=== PATIENT | female | born 1970 | race Caucasian/White ===

== ENCOUNTER → 2016-11-27 | Outpatient (CLI) | payer BC ==
[2016-11-27 18:36] LABS: ESTIMATED AVERAGE GLUCOSE 105 mg/dl; HA1C FLAG Normal (Normal)
[2016-11-29 12:42] LABS: THYROGLOBULIN <0.1 NG/ML (2.8-40.9)
== END | disposition home or self-care (01) ==
LOC: C.LAB1850 16:37
PROVIDERS: ATTEND Internal Medicine Endocrinology, Diabetes & Metabolism
DX: E06.3 Autoimmune thyroiditis (principal); M79.1 Myalgia; E66.9 Obesity, unspecified; C73 Malignant neoplasm of thyroid gland

== ENCOUNTER → 2017-09-02 | Outpatient (CLI) | payer BC ==
[2017-09-02 17:52] LABS: BASO % 0.5 %; BASO ABS # 0.03 K/uL (0-0.2); EOS % 3.3 %; EOS ABS # 0.21 K/uL (0-0.5); HEMATOCRIT 38.6 % (37-47); HEMOGLOBIN 13.2 g/dL (12.0-16.0); IG# 0.02 K/uL (0.00-0.02); LYMPH % 37.3 %; LYMPH ABS # 2.37 K/uL (1.2-3.4); MEAN CELL VOLUME 91.9 fL (80-100); MEAN CORPUSCULAR HEMOGLOBIN 31.4 pg (25-34); MEAN CORPUSCULAR HGB CONC 34.2 g/dl (32-36); MEAN PLATELET VOLUME 8.7 fL (7.4-10.4); MONO % 7.7 %; MONO ABS # 0.49 K/uL (0.11-0.59); NEUT % 50.9 %; NEUT ABS # 3.23 K/uL (1.4-6.5); PLATELET COUNT 347 K/uL (130-400); RED CELL DISTRIBUTION WIDTH CV 13.5 % (11.5-14.5); RED CELL DISTRIBUTION WIDTH SD 45.4 fL (36.4-46.3); WHITE BLOOD COUNT 6.35 K/uL (4.8-10.8)
[2017-09-02 17:56] LABS: ALBUMIN 3.5 gm/dl (3.4-5.0); ALT/SGPT 24 U/L (12-78); AST/SGOT 17 U/L (15-37); BLOOD UREA NITROGEN 11 mg/dl (7-18); CALCIUM 8.3 mg/dl (8.5-10.1); CARBON DIOXIDE 26 mmol/L (21-32); CREATININE 0.74 mg/dl (0.60-1.20); GLUCOSE 84 mg/dl (70-99); POTASSIUM 4.1 mmol/L (3.5-5.1); SODIUM 138 mmol/L (136-145)
[2017-09-02 18:07] LABS: ALKALINE PHOSPHATASE 57 U/L (45-117); TOTAL PROTEIN 6.8 gm/dl (6.4-8.2)
== END | disposition home or self-care (01) ==
LOC: C.LABMFLN 15:54
PROVIDERS: ATTEND Family Medicine
DX: E89.0 Postprocedural hypothyroidism (principal); E53.8 Deficiency of other specified B group vitamins; E55.9 Vitamin D deficiency, unspecified; M79.1 Myalgia

== ENCOUNTER 2019-12-18 08:08 | Observation (INO) ==
--- NOTE | 2019-12-15 11:35 | Anesthesiology Consultation ---
Date of Service December 15, 2019 Assessment & Plan (1) Encounter for pre-operative examination: Chart Review Chart Review: Acceptable Risk for Surgery (pending DOS and preop Covid testing results ) and Patient NOT seen in Pre Admission Testing -Per surgeon's office- preop labs to be done DOS- will order CBC with diff, PRP and PT/INR/PTT. Also check preg test stat AM of surgery. Egg allergy per allergy testing- patient still eats PO eggs- causes cough -Pt seen in PAT 07/09/19 prior to surgery getting postponed- at that time patient denied any personal issues with anesthesia. Pt's father had one episode of SOB post op but no other issues. Per nursing assessment 12/09/19, no recent travel. No known Covid positive contacts or Covid related symptoms. Scheduled for Covid testing 12/14/19= results pending. Last seen by PCP 08/05/19= pt did discuss at that time that her ankle surgery was postponed due to Covid. Routine labs ordered. Continue current medications. Hypothyroidism, asthma, GERD all seem stable. Encouraged healthy diet and exercis to promote weight loss to improve BMI. Seen by EP 09/01/18= Referred to EP due to positive KCNQ1. Possible risk for long QT. Prolonged QT on 12/2014 EKG. Cardio reviewed EKG from that day with patient - no significant issues. Reviewed ECHO. Avoid agents that prolong QTc and to check with cardio office or pharmacists before taking any new meds. "No further cardiac testing necessary at this juncture". No nadolol at this time as it would likely make patient hypotensive and bradycardic. Recommended her children and siblings get gene tested. F/u in one year History Surgery Operation Date: 12/18/19 10:05 Proposed Procedures p Left Ankle Reconstruction Posterior Tibial Tendon with Excision Accessory Navicular and Flexor Digitorium Longus, - Rodolfo Galicia DO s Medializing Calcaneal Osteotomy, Lateral Column [place] with Autograft, Autograft [place] Left Iliac Crest - Rodolfo Galicia DO Height/Weight Height: 5 ft 8.5 in Weight: 122.47 kg Allergies Allergy/AdvReac Type Severity Reaction Status Date / Time venom-honey bee Allergy Severe SWELLING Verified 12/09/19 10:43 ARM cephalexin [From Keflex] Allergy Unknown Hives Verified 12/09/19 10:43 egg Allergy Unknown COUGH-EATS Verified 12/09/19 10:43 ANYWAY erythromycin base Allergy Unknown Hives Verified 12/09/19 10:43 Penicillins Allergy Unknown Hives Verified 12/09/19 10:43 Sulfa (Sulfonamide Allergy Unknown Hives Verified 12/09/19 10:43 Antibiotics) CHICLE Allergy Severe Anaphylaxis Uncoded 12/09/19 10:43 Medications Home Medications Medication Instructions Recorded Confirmed Last Taken cholecalciferol (vitamin D3) 50 5,000 units PO QAM #30 tab 01/13/19 12/09/19 Unknown mcg (2,000 unit) tablet cyanocobalamin (vitamin B-12) 10,000 mcg PO QAM tab 01/13/19 12/09/19 Unknown 1,000 mcg tablet epinephrine 0.3 mg/0.3 mL 0.3 ml IM ONCE PRN ea 01/13/19 12/09/19 Unknown injection, auto-injector levothyroxine 175 mcg tablet 175 mcg PO QAM tab 01/13/19 12/09/19 Unknown norethindrone acetate 5 mg tablet 5 mg PO Q OTHER DAY tab 01/13/19 12/09/19 Unknown albuterol sulfate 2 puff INHALATION QID PRN 07/03/19 12/09/19 Unknown aspirin [Aspir-81] 81 mg PO QAM 07/03/19 12/09/19 Unknown diclofenac sodium 50 mg PO BID PRN 07/03/19 12/09/19 Unknown ibuprofen 600 mg PO Q6H PRN 07/03/19 12/09/19 Unknown multivitamin 1 tab PO HS 07/03/19 12/09/19 Unknown Past Medical History Medical History Asthma WELL CONTROLLED AND STABLE- RARELY USES INHALER GERD (gastroesophageal reflux disease) WELL CONTROLLED AND STABLE H/O Prinzmetal angina Occurred in 2011- had catherization - no issues Hypothyroidism Secondary to thyroidectomy Long Q-T syndrome FOUND TO HAVE GENETIC PREDISPOSITION TO PROLONGED QT SYNDROME- F/U'S INDUSTRIAL SAFETY AND HEALTH SPECIALIST RAZIA ARRINGTON-DX'D 2019-NO MEDS Osteoarthritis Thyroid cancer s/p thyroidectomy and iodine ablation. No chemo or XRT Past Family History Family History Father Family history of reaction to anesthesia SLOW TO WAKE UP/BREATH POST OP Family hx of colon cancer Grandmother (Maternal) Family history of diabetes mellitus Past Surgical History Surgical History History of cardiac cath 2012 [place] NO INTERVENTION NEEDED- PER 09/01/18 CARDIO NOTE- NORMAL CORONARY ARTERIES- UNABLE TO OBTAIN CATH REPORT History of section X 2 History of cholecystectomy History of colonoscopy X 2 History of endometrial ablation History of esophagogastroduodenoscopy (EGD) History of hand surgery TENDON REPAIR History of thyroidectomy 2013 FOR CANCER PLUS NUCLEAR ABLATION Social History Smoking Status: Never smoker Do You Dip or Chew Tobacco: No Hx Alcohol Use: Yes Alcohol type: wine alcohol intake frequency: a few times a month Hx Substance Use: No Testing Electrocardiogram Date: 07/09/19 Findings: + NSR @ (75) Chest X-Ray Date: 07/09/19 Findings: + NAD Echocardiogram Date: 05/29/18 EF: 50-55% LV Function: normal RWMA: + hypokinetic (see below ) HK to basal inferoseptal, mid inferoseptal and apical septal. Mild to moderate MR. Mild TR. No significant change from 2012 study
--- NOTE | 2019-12-17 16:27 | History & Physical Report ---
Date of Service December 17, 2019 Assessment & Plan (1) Posterior tibial tendon dysfunction (PTTD) of left lower extremity: Schedule a Left Ankle posterior tibial tendon Reconstruction with flexor digitorum longus transfer, Excision Accessory Navicular, Medializing Calcaneal Osteotomy, Lateral Column Lengthening with Autograft, Autograft [place] Left Iliac Crest, possible percutaneous tendoachilles lengthening. All potential risks, benefits, complications, alternatives, and rehab have been discussed with the patient and she wishes to proceed. She will be scheduled for 12.18.2019 with plan for ASA 81 mg BID x 4 wks for DVT prophylaxis. (2) Pes planus of left foot: (3) Nontraumatic tear of left tibialis posterior tendon: (4) Accessory navicular bone of left foot: (5) Achilles tendon contracture, left: History of Present Illness Chief Complaint: left ankle pain and deformity Primary Care Provider: Chitra Chance PA-C This is a patient with worsening medial and lateral hindfoot pain that has been treated conservatively. She failed conservative management and her flat foot deformity was worsening. She had an MRI that noted a posterior tibial tendon tear and dysfunction. She is now being set up for surgical management. Allergies Allergy/AdvReac Type Severity Reaction Status Date / Time venom-honey bee Allergy Severe SWELLING Verified 12/09/19 10:43 ARM cephalexin [From Keflex] Allergy Unknown Hives Verified 12/09/19 10:43 egg Allergy Unknown COUGH-EATS Verified 12/09/19 10:43 ANYWAY erythromycin base Allergy Unknown Hives Verified 12/09/19 10:43 Penicillins Allergy Unknown Hives Verified 12/09/19 10:43 Sulfa (Sulfonamide Allergy Unknown Hives Verified 12/09/19 10:43 Antibiotics) CHICLE Allergy Severe Anaphylaxis Uncoded 12/09/19 10:43 Home Medications Home Medications Medication Instructions Recorded Confirmed Type cholecalciferol (vitamin D3) 50 5,000 units PO QAM #30 tab 01/13/19 12/09/19 History mcg (2,000 unit) tablet cyanocobalamin (vitamin B-12) 10,000 mcg PO QAM tab 01/13/19 12/09/19 History 1,000 mcg tablet epinephrine 0.3 mg/0.3 mL 0.3 ml IM ONCE PRN ea 01/13/19 12/09/19 History injection, auto-injector levothyroxine 175 mcg tablet 175 mcg PO QAM tab 01/13/19 12/09/19 History norethindrone acetate 5 mg tablet 5 mg PO Q OTHER DAY tab 01/13/19 12/09/19 History albuterol sulfate 2 puff INHALATION QID PRN 07/03/19 12/09/19 History aspirin [Aspir-81] 81 mg PO QAM 07/03/19 12/09/19 History diclofenac sodium 50 mg PO BID PRN 07/03/19 12/09/19 History ibuprofen 600 mg PO Q6H PRN 07/03/19 12/09/19 History multivitamin 1 tab PO HS 07/03/19 12/09/19 History Past Med/Surg History Medical History Asthma WELL CONTROLLED AND STABLE- RARELY USES INHALER GERD (gastroesophageal reflux disease) WELL CONTROLLED AND STABLE H/O Prinzmetal angina Occurred in 2011- had catherization - no issues Hypothyroidism Secondary to thyroidectomy Long Q-T syndrome FOUND TO HAVE GENETIC PREDISPOSITION TO PROLONGED QT SYNDROME- F/U'S CURRICULUM ASSISTANT RAZIA ARRINGTON-DX'D 2019-NO MEDS Osteoarthritis Thyroid cancer s/p thyroidectomy and iodine ablation. No chemo or XRT Surgical History History of cardiac cath 2012 [facility] [place] NO INTERVENTION NEEDED- PER 09/01/18 CARDIO NOTE- NORMAL CORONARY ARTERIES- UNABLE TO OBTAIN CATH REPORT History of section X 2 History of cholecystectomy History of colonoscopy X 2 History of endometrial ablation History of esophagogastroduodenoscopy (EGD) History of hand surgery TENDON REPAIR History of thyroidectomy 2012 FOR CANCER PLUS NUCLEAR ABLATION Family History Father Family history of reaction to anesthesia SLOW TO WAKE UP/BREATH POST OP Family hx of colon cancer Grandmother (Maternal) Family history of diabetes mellitus Social History Smoking Status: Never smoker Second Hand Exposure: No; Hx Alcohol Use: Yes Alcohol type: wine Hx Substance Use: No Preferred Language: P[place] Communication Ability: Effective Electronic News Gathering Editor Required: No Beliefs That Will Affect Care: None Current Living Situation: Spouse Feels Safe at Home: Yes Physical Exam Constitutional: well developed and well nourished; no acute distress ENMT: external ear and nose normal, oropharynx normal Neck: trachea midline, no thyromegaly Respiratory: normal respiratory effort, lungs clear to auscultation Cardiovascular: Rate/Rhythm: regular rate and regular rhythm Gastrointestinal (Abdomen): normal bowel sounds, soft, nontender, no hepatosplenomegaly Musculoskeletal: Ankle: + deformity (left pes planovalgus deformity), + limited ROM of ankle (left dorsiflexion and inversion decreased) and + joint line tenderness (ankle) (left PTT and sinus tarsi); no skin erythema and no ecchymosis Skin: no rashes, warm and dry Neurologic: normal touch/pain/proprioception Psychiatric: A+Ox3, euthymic affect Speech: normal rate/rhythm/volume of speech Lymphatic: no cervical or axillary lymphadenopathy
[~2019-12-18 08:08] MED LIST: LR 15ML/HR IV SCH; ROPIVACAINE 0.5% 5 MG/ML 30 ML VIAL ONE
[2019-12-18 09:14] LABS: Basophils # (auto) 0.03 K/uL (0-0.2); Basophils % (auto) 0.5 %; Eosinophils % (auto) 3.2 %; Hematocrit (blood only) 40.6 % (37-47); Hemoglobin 13.7 g/dL (12.0-16.0); Immature Granulocytes # (auto) 0.02 K/uL (0.00-0.02); Immature Granulocytes % (auto) 0.3 %; Lymphocytes % (auto) 41.3 %; Mean Corpuscular Hemoglobin 31.6 pg (25-34); Mean Corpuscular Volume 93.5 fL (80-100); Mean Platelet Volume 8.8 fL (7.4-10.4); Monocytes # (auto) 0.41 K/uL (0.11-0.59); Monocytes % (auto) 6.5 %; Neutrophils # (auto) 3.03 K/uL (1.4-6.5); Neutrophils % (auto) 48.2 %; Platelet Count 299 K/uL (130-400); RDW Coefficient of Variation 13.8 % (11.5-14.5); RDW Standard Deviation 47.4 fL (36.4-46.3); Red Blood Count 4.34 M/uL (4.2-5.4); White Blood Count 6.29 K/uL (4.8-10.8)
[2019-12-18 09:26] LABS: Mean Corpuscular Hgb Conc 33.7 g/dL (32-36)
[2019-12-18 09:30] LABS: BUN Creatinine Ratio 18.9 (10-20); Calcium 8.7 mg/dl (8.5-10.1); Creatinine Clr Calc Pharmacy 109.8 ml/min; Est GFR (Non-African American) 77.7; Potassium 3.8 mmol/L (3.5-5.1)
[2019-12-18] MEDS ORDERED: MIDAZOLAM HCL 1 MG/ML 2ML VIAL ONE (09:32)
[2019-12-18] MEDS ORDERED: PROPOFOL IV EMULSION 10 MG/ML 20 ML VIAL IV ONE (09:32)
[2019-12-18] MEDS ORDERED: fentaNYL citrate 100 MCG/2 ML VIAL ONE ×4 (09:32→14:29)
[2019-12-18] MEDS ORDERED: ROCURONIUM BROMIDE 10 MG/ML 5 ML VIAL IV ONE ×5 (09:33→13:31)
[2019-12-18] MEDS ORDERED: LIDOCAINE HCL 2% 2 ML VIAL/AMP(20MG/ML) INFIL ONE (09:40)
[2019-12-18] MEDS ORDERED: ePHEDrine sulfate 50 MG/ML AMP IV PRN (10:02)
[2019-12-18] MEDS ORDERED: fentaNYL citrate 100 MCG/2 ML VIAL IV PRN (10:02)
[2019-12-18] MEDS ORDERED: ATROPINE SULFATE 0.1 MG/ML 10ML SYR IV PRN (10:02)
[2019-12-18 10:39] LABS: Partial Thromboplastin Ratio 0.9; Partial Thromboplastin Time 25.7 Seconds (21.0-31.0); Prothrombin Time 10.3 Seconds (9.0-12.0)
--- NOTE | 2019-12-18 10:48 | History & Physical Bridge Note ---
Date of Service December 18, 2019 History & Physical Bridge Note I have examined the patient, reviewed the History & Physical and in the interval since the performance of the History & Physical I have noted the following changes of clinical significance: no changes noted
[2019-12-18] MEDS ORDERED: CEFAZOLIN 3000MG 72.5 ML IV ONE (10:53)
[2019-12-18] MEDS ORDERED: CEFAZOLIN 3000MG/72.5 ML BAG IV ONE (10:55)
[2019-12-18] MEDS ORDERED: BACITRACIN INJ 50,000 UNIT VIAL ONE (11:00)
[2019-12-18] MEDS ORDERED: LIDOCAINE HCL 1% 20 ML VIAL ONE (11:00)
[2019-12-18] MEDS ORDERED: BUPIVACAINE/EPINEPHRINE 0.25% 1:200,000 30 ML VIAL ONE (11:00)
[2019-12-18] MEDS ORDERED: THROMBIN FOR SOLN 20000 UNIT KIT ONE (11:03)
[2019-12-18] MEDS ORDERED: GELATIN SPONGE SZ 100 ONE (11:03)
[2019-12-18] MEDS ORDERED: MoRPHine SULFATE PF 1 MG/ML 10 ML AMP/VIAL ONE (11:52)
[2019-12-18] MEDS ORDERED: GLYCOPYRROLATE 0.2 MG/ML VIAL ONE (13:31)
[2019-12-18] MEDS ORDERED: NEOSTIGMINE METHYLSULFATE 5 MG/5 ML SYR ONE (13:31)
--- NOTE | 2019-12-18 13:49 | Fluoroscopy Report ---
FL ankle LT 2V HISTORY: 49 years-old Female LT ANKLE RECONSTRUCTION COMPARISON: None TECHNIQUE: 2 spot fluoroscopic images of the left ankle were obtained utilizing 14.5 seconds fluorosc opy time FINDINGS: There are apparent osteotomy changes present within the calcaneus with 2 cannulated screws. Hardware appears intact. Subtalar osteoarthritis. Expected postsurgical soft tissue swelling and deep tissue a ir. There are 2 posterior skin carly noted. IMPRESSION: Fluoroscopic assistance as above. Please see operative report for further details. ACT 112: Negative or not required by law. The above report was generated using voice recognition software. It may contain grammatical, syntax o r spelling errors. Electronically signed by: Stone Cano M.D. 12/18/2019 1:47 PM
--- NOTE | 2019-12-18 14:29 | Post Operative Brief Note ---
Immediate Post Op Note v1 Date of Surgery December 18, 2019 Pre & Post Diagnosis Operation Date: 12/18/19 10:05 Pre-Op Diagnosis: (1) Posterior tibial tendon dysfunction (PTTD) grade 2 of left lower extremity: (2) painful pes planus of left foot: (3) Nontraumatic tear of left tibialis posterior tendon: (4) Accessory navicular bone of left foot: (5) Achilles tendon contracture, left: Post-Op Diagnosis: (1) Posterior tibial tendon dysfunction (PTTD) grade 2 of left lower extremity: (2) painful pes planus of left foot: (3) Nontraumatic tear of left tibialis posterior tendon: (4) Accessory navicular bone of left foot: (5) Achilles tendon contracture, left: I identified the patient and participated in the time-out.: Yes Procedure Operation Date: 12/18/19 10:05 Actual Procedures p Left posterior tibial tendon Reconstruction with flexor digitorum longus tendon transfer, percutaneous Achilles Tendon Lengthening, Excision Accessory Navicular bone- Rodolfo Galicia DO s Medializing Calcaneal Osteotomy with screw fixation, Lateral Column Lengthening with Autograft, Autograft [place] Left Iliac Crest - Rodolfo Galicia DO Surgeon Rodolfo Galicia DO Pattern Stamper Eric Harrison PA-C Estimated Blood Loss 5 Findings Consistent with Post-Op Diagnosis Specimens None Drains Hemovac Drain Anesthesia Type General Regional Complications none Disposition Accompanied Patient To Recovery: No Disposition: Recovery Room
--- NOTE | 2019-12-18 15:19 | Anesthesiology Progress Note ---
Date of Service December 18, 2019 Anesthesia Post Procedure Vital Signs Vital Signs: Temp Pulse Pulse Resp BP Pulse Ox 12/18/19 15:10 85 14 133/85 99 12/18/19 15:00 77 14 131/82 100 12/18/19 14:50 81 14 129/81 100 12/18/19 14:41 37.0 C 85 14 138/76 98 12/18/19 09:30 69 18 147/89 H 98 12/18/19 09:07 37.1 C 88 18 128/96 100 Transfer of Care Handoff Completed per policy Notes Mental Status: alert / awake / arousable and participated in evaluation Patient Amnestic to Procedure: Yes Nausea / Vomiting: adequately controlled Pain: adequately controlled Airway Patency, RR, SpO2: stable & adequate BP & HR: stable & adequate Hydration State: stable & adequate Anesthetic Complications: no major complications apparent and Pt Satisfied with anesthetic care Notes: block is functioning well
--- NOTE | 2019-12-18 16:12 | Operative Report (OR) ---
DATE OF OPERATION: 12/18/2019 PREOPERATIVE DIAGNOSES: 1. Left foot posterior tibial tendon dysfunction grade 2. 2. Posterior tibial tendon tear. 3. Achilles contracture. 4. Painful accessory navicular. 5. Painful pes planovalgus deformity. POSTOPERATIVE DIAGNOSES: 1. Left foot posterior tibial tendon dysfunction grade 2. 2. Posterior tibial tendon tear. 3. Achilles contracture. 4. Painful accessory navicular. 5. Painful pes planovalgus deformity. PROCEDURES PERFORMED: 1. Left foot posterior tibial tendon reconstruction with flexor digitorum longus tendon transfer. 2. Medialized and calcaneal osteotomy with screw fixation. 3. Lateral column lengthening procedure with autograft. 4. Percutaneous tendon Achilles lengthening. 5. Resection of painful accessory navicular. 6. Autograft harvest from the left iliac crest. SURGEON: Rodolfo Galicia DO. SHIPPING SERVICES SALES REPRESENTATIVE: Eric Harrison PA-C who was present for patient positioning, sterile prep and drape, management of retractors and instruments. He was present through the critical portions of the case including wound closure, application of sterile dressing and transport of the patient to recovery. ANESTHESIA: General, regional. SPECIMENS: None. DRAINS: Hemovac x1. COMPLICATIONS: None. BLOOD LOSS: 20 mL. PERTINENT HISTORY: This is a 49-year-old female who has had progressive chronic and worsening left foot and hindfoot pain over the last 6 months. She has noted flattening of her medial arch with increasing lateral-sided sinus tarsi pain and increasing contracture of her Achilles tendon. She attempted and failed conservative management including use of anti-inflammatories, use of a brace, modification of shoe wear, modification of activities, rest, observation, physician-directed home exercises and physical therapy. Radiographs and MRI demonstrate damage to the posterior tibial tendon with significant hindfoot valgus and accessory navicular. The patient was then scheduled for surgery as indicated. All potential risks, benefits, complications, alternatives, rehab potential for incomplete relief of symptoms, need for further surgery, DVT, PE, , persistent pain, swelling, scarring, weakness, neurovascular injury, wound complications, hardware failure, nonunion, malunion, and bone fracture were discussed with the patient. The patient decided to proceed with the procedure as indicated. DESCRIPTION OF PROCEDURE: The patient was taken to the operative suite. The consent was reviewed and surgical site was identified. The patient had undergone a general, regional anesthetic and then transferred to the Operating Room table. Tourniquet was placed high in the left thigh over cast padding. Left iliac crest and left lower extremity were then sterilely prepped and draped in usual fashion. The left lower extremity was then elevated and exsanguinated with Esmarch bandage, tourniquet inflated to 350 mmHg. Next, left foot was held in dorsiflexion. 11 blade scalpel was used to perform a three part percutaneous tendo Achilles lengthening and then the small stab incisions were then closed with a skin stapler. Next, a 15 blade scalpel was used to make an incision in oblique fashion on the lateral aspect of the left calcaneus. The incision was deepened to subcutaneous tissue. Meticulous hemostasis with electrocautery. Full thickness flaps were developed. Next, periosteum was elevated with small periosteal elevator. Hohmann retractors were placed and a sagittal saw was used to perform the osteotomy in the posterior aspect of the calcaneus. Tuberosity was then shifted medially and then stabilized with a guide pin from the 7.3 mm cannulated screw set under fluoroscopic control. Next, a short thread 7.3 mm cannulated screw of appropriate length was then placed over the guide pin and then used to compress the osteotomy under fluoroscopic control. Next, the guide pin was removed. The wound was irrigated with sterile normal saline and the dermis was closed using buried 3-0 Vicryl sutures and the skin was closed using 4-0 Nylon. Next, a 15 blade scalpel incision was made over the anterior process of the calcaneus and lateral calcaneus, the incision deepened through subcutaneous tissue, meticulous hemostasis with electrocautery. The extensor digitorum brevis was identified, incised and then elevated both superiorly and inferiorly. Peroneal tendon sheath was elevated and Hohmann retractors were placed in the sinus tarsi and then the inferior aspect of the calcaneus. A sagittal saw was used to make an osteotomy approximately 1.5 cm proximal to the calcaneal cuboid joint. Smooth osteotomes were placed into the osteotomies to open the osteotomy site and then a cervical lamina weave defect charting clerk was placed in the opening. The opening of appropriate width was then measured and the cervical lamina weave defect charting clerk was then removed from the osteotomy and a moist lap was placed over the foot. Next, after injection of the left iliac crest with approximately 15 cc of 0.5% Marcaine with Epinephrine a 15 blade scalpel incision was made over the iliac crest approximately 1 cm proximal to the ASIS. This was deepened to subcutaneous tissue with electrocautery down to the level of the fascia. Fascia was incised in line with the skin incision and then the iliac crest was clearly visualized, soft tissue and fascia was elevated medially and laterally. Small Santos retractors were placed in the inner and outer table of the iliac crest. It was irrigated with sterile Normal Saline. Appropriate length of bone wedge was measured and marked with electrocautery and then a sagittal saw was used to resect the appropriate width trapezoidal tricortical graft from the pelvis. Next, after irrigation and suction the graft was then placed on the back table and a small amount of cancellous graft was excised from the iliac crest. The wound was then finally irrigated with Sterile Normal Saline. The defect in the iliac crest was then packed with Gelfoam and Thrombin. This was then closed with the fascia overlying the iliac crest with #1 Vicryl sutures. Next, this was injected with 1 cc of Duramorph and 5 cc of 0.5% Marcaine with Epinephrine. The dermis was closed using buried interrupted 2-0 Vicryl sutures and the skin was closed using skin carly. Approximately 5 more cc of 0.5% Marcaine with Epinephrine was injected. No oozing or bleeding was encountered and a sterile compressive dry dressing was applied overwrapped with an OpSite. Next, the graft was then placed in the lateral osteotomy of the foot to lengthen the lateral column using a cervical lamina weave defect charting clerk to span the osteotomy. After the graft was tamped in place with a bone tamp and mallet the cervical lamina weave defect charting clerk was removed. Next, the adjacent bone graft obtained from the iliac crest was then packed around the tricortical graft and then the graft was then stabilized with a single fully threaded 4.0 mm small fragment screw placed under lag technique compressing the graft in place. Next, the 2-0 Vicryl suture was used to close the extensor digitorum brevis and the dermis was closed using buried interrupted 3-0 Vicryl. Skin was closed using 4-0 Nylon sutures. Next, a 15 blade scalpel was used to make a long curvilinear incision along the medial aspect of the hind foot overlying the posterior tibial tendon. The incision was deepened to subcutaneous tissue. Meticulous hemostasis achieved with electrocautery. The incision was extended to the first metatarsal head. Next, after incision of the lacinate ligament the flexor retinaculum was encountered. This was incised in line with skin incision overlying the posterior tibial tendon. The posterior tibial tendon was clearly visualized. Tenotomy scissors were then used to complete the release of the flexor retinaculum and the posterior tibial tendon was then elevated sharply with combination of electrocautery and 15 blade scalpel from its insertion on the navicular. The damaged portion of the tendon distally was then resected and then a whip stitch was placed with #2 FiberWire suture in the distal aspect of the posterior tibial tendon. Next, dissection was continued in the mid foot in the interval between the first metatarsal and the abductor hallucis. A Agustín retractor was placed in the wound and then after careful dissection the master knot of Yusef was released and the flexor digitorum longus and flexor hallucis longus were clearly visualized distally. Tenodesis was performed with interrupted #2 FiberWire suture with toes held in neutral alignment in line with the metatarsals. Next, a whip stitch was placed in the distal aspect of the FDL tendon and then the FDL was then released distally to allow it to be retracted proximally posterior to the medial malleolus after a small cut was made in the FDL sheath posterior to the medial malleolus. After the tendon was withdrawn posteriorly, the soft tissues were elevated from the medial navicular and a 4.5 mm drill hole was made in the medial navicular. A Melendez suture passer was used to transfer the tendon from the plantar to the dorsal aspect of the navicular. It was then sutured back down to itself using a sharp tendon passer and a Pulvertaft weave technique with #2 fiber wire suture. Several passes were made and then this was then incorporated into the posterior tibial tendon. Next, free needle was used to tie the ends of the posterior tibial tendon and FDL tendon into the adjacent tendons. Sutures were then tied and cut. The wound was irrigated with Sterile Normal Saline. Deep drain was placed, a #10 [place] single Hemovac drain medially and then the flexor sheath was closed using interrupted 2-0 Vicryl sutures. The interval between the first metatarsal and the abductors were closed using interrupted 2-0 Vicryl sutures. The dermis was closed using buried interrupted 3-0 Vicryl suture and skin closed with 4-0 Nylon. A sterile compressive Filemon Huffman plaster splint was applied and wrapped with an Tyler wrap with the foot held in slight equinus and inversion. The tourniquet was released, patient awakened and taken to recovery in stable condition. I attest to the content of the Intraoperative Record and any orders documented therein. Any exceptions are noted below. SANCHEZ
[2019-12-18] MEDS ORDERED: MAGNESIUM HYDROXIDE SUSP 30 ML UDC PO PRN (16:44)
[2019-12-18] MEDS ORDERED: ONDANSETRON INJ 2 MG/ML 2 ML VIAL IV PRN (16:44)
[2019-12-18] MEDS ORDERED: ALBUTEROL HFA 8 GM INHALER INH PRN (16:44)
[2019-12-18] MEDS ORDERED: bisacodyL 10 MG SUPP PR PRN (16:44)
[2019-12-18] MEDS ORDERED: NALOXONE HCL 0.4 MG/1 ML VIAL/CARP IV PRN (16:44)
[2019-12-18] MEDS ORDERED: OXYCODONE HCL IR 5 MG TAB (IMMEDIATE RELEASE) ONE (17:01)
[2019-12-18] MEDS ORDERED: SODIUM CHLORIDE 0.9% 1000ML 1,000 ML IV SCH (17:30)
[2019-12-18] MEDS: CEFAZOLIN 2000MG 2,000 MG/15 ML SYR IV SCH (18:47)
[2019-12-18] MEDS: ASPIRIN 81 MG ECTAB PO SCH (21:53)
[2019-12-18] MEDS: ACETAMINOPHEN 500 MG TAB PO SCH (21:53)
[2019-12-18] MEDS: DOCUSATE SODIUM 100 MG CAP PO SCH (21:54)
[2019-12-18] MEDS: OXYCODONE HCL IR 5 MG TAB (IMMEDIATE RELEASE) PO PRN (21:58)
[2019-12-19] MEDS: CEFAZOLIN 2000MG 2,000 MG/15 ML SYR IV SCH (03:19)
[2019-12-19] MEDS: OXYCODONE HCL IR 5 MG TAB (IMMEDIATE RELEASE) PO PRN ×6 (03:19→21:56)
[2019-12-19] MEDS: HYDROmorphone INJ 0.5 MG/0.5 ML SYR IV PRN ×4 (05:00→19:36)
[2019-12-19] MEDS ORDERED: HYDROmorphone INJ 1 MG/ML SYRINGE IV STA (05:48)
[2019-12-19] MEDS: ACETAMINOPHEN 500 MG TAB PO SCH ×3 (05:53→21:57)
[2019-12-19] MEDS: LEVOTHYROXINE SODIUM 175 MCG TABLET PO SCH (05:54)
[2019-12-19] MEDS: ASPIRIN 81 MG ECTAB PO SCH ×2 (08:18→19:40)
[2019-12-19] MEDS: MULTIVITAMIN TAB PO SCH (08:18)
[2019-12-19] MEDS: DOCUSATE SODIUM 100 MG CAP PO SCH ×2 (08:18→19:40)
--- NOTE | 2019-12-19 10:35 | Orthopedic Progress Note ---
Date of Service December 19, 2019 Assessment & Plan (1) Achilles tendon contracture, left: POD #1, Left posterior tib tendon reconstruction, Achilles lengthening, excision accessory navicular bone, calcaneal osteotomy with iliac crest bone autograft. Pain control PT/OT NWB w walker D/C plans- home w stable. DVT proph- ASA. (2) Posterior tibial tendon dysfunction (PTTD) of left lower extremity: Admission and Anticipated Discharge Date Admission Date: December 18, 2019 Subjective POD #1, Pain is main issues this AM. Denies SOB, Cp, N/V, dizziness. Used walker to go to and from restroom, but states she was unsteady. Physical Exam Physical Exam: Left foot/ ankle dressings/ splint c/d/i. Toes mobile. Decreased sensation at toes. Good capillary refill. Left hip dressing c/d/i. Results & Data ([facility]) Vital Signs (Past 12 Hours) Vital Signs Temp Pulse Resp BP Pulse Ox 12/19/19 06:49 37.0 C 92 H 16 109/69 94 12/19/19 03:00 36.9 C 85 16 110/70 96 12/18/19 23:05 37.1 C 62 16 123/78 98
[2019-12-19 11:48] LABS: Appearance Urine Cloudy (Clear); Bacteria Urine Automated Negative (Negative); Bilirubin Urine Negative (Negative); Blood Urine 2+ (Negative); Color Urine Dark Yellow; Epithelial Cell Urine Auto >30 /lpf (0-5); Glucose Urine UA Negative (Negative); Ketones Urine Trace (Negative); Leukocyte Esterase Urine Negative (Negative); Nitrite Urine Negative (Negative); Protein Urine Negative (Negative); Specific Gravity Urine 1.031 (1.000-1.030); Urobilinogen Urine Negative (Negative)
[2019-12-19] MEDS: OXYCODONE HCL 10 MG TABCR (OXYCONTIN) PO SCH (20:14)
[2019-12-20] MEDS: HYDROmorphone INJ 1 MG/ML SYRINGE IV PRN ×3 (00:21→20:02)
[2019-12-20] MEDS: OXYCODONE HCL IR 5 MG TAB (IMMEDIATE RELEASE) PO PRN ×4 (03:15→17:40)
[2019-12-20] MEDS: ACETAMINOPHEN 500 MG TAB PO SCH ×3 (06:59→21:59)
[2019-12-20] MEDS: LEVOTHYROXINE SODIUM 175 MCG TABLET PO SCH (06:59)
[2019-12-20] MEDS: OXYCODONE HCL 10 MG TABCR (OXYCONTIN) PO SCH ×2 (08:13→20:03)
[2019-12-20] MEDS: DOCUSATE SODIUM 100 MG CAP PO SCH ×2 (08:14→20:03)
[2019-12-20] MEDS: MULTIVITAMIN TAB PO SCH (08:14)
[2019-12-20] MEDS: ASPIRIN 81 MG ECTAB PO SCH ×2 (08:14→20:03)
--- NOTE | 2019-12-20 08:30 | Orthopedic Progress Note ---
Date of Service December 20, 2019 Assessment & Plan (1) Achilles tendon contracture, left: POD #2, Left posterior tib tendon reconstruction, Achilles lengthening, excision accessory navicular bone, calcaneal osteotomy with iliac crest bone autograft. Pain control, Oxycontin added q12h w Brianna for break through. IV if needed. PT/OT NWB w walker D/C plans- home when stable- patient needs better pain control and safer gait control, will re eval tomorrow for poss D/C. DVT proph- ASA. Drain pulled today. (2) Posterior tibial tendon dysfunction (PTTD) of left lower extremity: Schedule a Left Ankle posterior tibial tendon Reconstruction with flexor digitorum longus transfer, Excision Accessory Navicular, Medializing Calcaneal Osteotomy, Lateral Column Lengthening with Autograft, Autograft Switchback Left Iliac Crest, possible percutaneous tendoachilles lengthening. All potential risks, benefits, complications, alternatives, and rehab have been discussed with the patient and she wishes to proceed. She will be scheduled for 12.18.2019 with plan for ASA 81 mg BID x 4 wks for DVT prophylaxis. Admission and Anticipated Discharge Date Admission Date: December 18, 2019 Subjective POD #2, Pain is main issues this AM. Denies SOB, Cp, N/V, dizziness. Used walker to go to and from restroom, but states she was unsteady, did not perform well in PT. Physical Exam Physical Exam: Left foot/ ankle dressings c/d/i, no drainage. Toes mobile. Sensation goo. Drain pulled. A&Ox3. Results & Data ([facility]) Vital Signs (Past 12 Hours) Vital Signs Temp Pulse Resp BP Pulse Ox 12/20/19 07:13 36.6 C 82 16 126/79 98 12/19/19 23:17 37.1 C 93 H 16 122/77 92
[2019-12-21] MEDS: OXYCODONE HCL IR 5 MG TAB (IMMEDIATE RELEASE) PO PRN ×3 (02:05→11:45)
[2019-12-21] MEDS: LEVOTHYROXINE SODIUM 175 MCG TABLET PO SCH (06:26)
[2019-12-21] MEDS: ACETAMINOPHEN 500 MG TAB PO SCH (06:26)
[2019-12-21] MEDS: DOCUSATE SODIUM 100 MG CAP PO SCH (07:23)
[2019-12-21] MEDS: ASPIRIN 81 MG ECTAB PO SCH (07:23)
[2019-12-21] MEDS: MULTIVITAMIN TAB PO SCH (07:23)
[2019-12-21] MEDS: OXYCODONE HCL 10 MG TABCR (OXYCONTIN) PO SCH (08:24)
--- NOTE | 2019-12-21 15:15 | Orthopedic Progress Note ---
Date of Service December 21, 2019 Assessment & Plan (1) Achilles tendon contracture, left: POD #3, Left posterior tib tendon reconstruction, Achilles lengthening, excision accessory navicular bone, calcaneal osteotomy with iliac crest bone autograft. Pain control, improved on current regimen PT/OT NWB w walker D/C plans- home DVT proph- ASA (2) Posterior tibial tendon dysfunction (PTTD) of left lower extremity: Schedule a Left Ankle posterior tibial tendon Reconstruction with flexor digitorum longus transfer, Excision Accessory Navicular, Medializing Calcaneal Osteotomy, Lateral Column Lengthening with Autograft, Autograft [place] Left Iliac Crest, possible percutaneous tendoachilles lengthening. All potential risks, benefits, complications, alternatives, and rehab have been discussed with the patient and she wishes to proceed. She will be scheduled for 12.18.2019 with plan for ASA 81 mg BID x 4 wks for DVT prophylaxis. Admission and Anticipated Discharge Date Admission Date: December 18, 2019 Subjective Post Operative Progress Note Patient seen this a.m. sitting up in bed, comfortable, denies complaints, pain well controlled, no acute issues. Denies F/C/N/V/SOB/CP. Review of Systems Review of Systems: All systems reviewed & are unremarkable except as noted in HPI & below Constitutional: as per Subjective / HPI Physical Exam Physical Exam: LLE PE limited secondary to splint immobilization, NVSI +EHL/FHL SILT grossly, +2 DP pulse, compartments soft NT, dressing cdi. Constitutional: WD/WN, vitals as above Results & Data ([place]) Vital Signs (Past 12 Hours) Vital Signs Temp Pulse Resp BP Pulse Ox 12/21/19 12:00 37.2 C 84 16 110/72 98 12/21/19 07:11 37.2 C 84 16 110/72 98 12/21/19 06:09 36.9 C 93 H 18 122/80 100
--- NOTE | 2019-12-29 21:49 | Discharge Summary (DS) ---
DISCHARGE DIAGNOSES: 1. Left foot posterior tibial tendon dysfunction grade II. 2. Posterior tibial tendon tear. 3. Achilles contracture. 4. Painful accessory navicular. 5. Painful pes planovalgus deformity. SECONDARY DIAGNOSES: Asthma, gastroesophageal reflux disease, history of Prinzmetal angina, hypothyroidism, long QT syndrome, osteoarthritis, history of thyroid carcinoma with thyroidectomy. CONSULTATIONS: None. COMPLICATIONS: None. PROCEDURES: 1. Left foot posterior tibial tendon reconstruction with flexor digitorum longus tendon transfer. 2. Medialized calcaneal osteotomy with a screw fixation. 3. Lateral column lengthening procedure with autograft. 4. Percutaneous tendon Achilles lengthening. 5. Resection of painful accessory navicular. 6. Autograft harvest from the left iliac crest by Dr. Galicia on 12/18/2019. BRIEF HISTORY: As dictated in the history and physical. HOSPITAL SUMMARY: The patient was admitted on the above-noted date and had the above-noted surgery performed, which she tolerated well. On her first postoperative day, she had pain control issues, but otherwise denied shortness of breath, chest pain, nausea and vomiting. [place] that she was unsteady with the ambulation back and forth to the bathroom. Vital signs were stable. She was afebrile. Dressings were intact. Toes were mobile. She had decreased sensation in her toes. Good capillary refill. Left hip dressing was clean, dry and intact. By her second postoperative day, she was continuing with some pain in the operative foot. She had not performed well in PT. Her dressings/splint were remaining intact. Her drain was removed. OxyContin was added to her pain regimen. She was continued on PT, OT protocols. By her third postoperative day, she was otherwise remaining stable, her pain control was much better. She had no complaints. Splint was clean, dry and intact and toes were mobile. The patient was ambulating 30 feet with physical therapy and maintaining nonweightbearing status. She was remaining stable and it was felt that she could be discharged to home. For further review, please see chart. LABORATORY AND X-RAY DATA: As per chart. DISCHARGE INSTRUCTIONS: The patient was discharged to home in satisfactory condition on 12/21/2019. DIET: Regular. ACTIVITY: Nonweightbearing in the left lower extremity with walker. Follow special care instructions and activity recommendations as noted. Follow up with Dr. Galicia in 2 weeks. The patient to call for appointment if one has not been made for you. DISCHARGE MEDICATIONS: Acetaminophen 1000 mg p.o. q. 8 hours, aspirin 81 mg p.o. b.i.d., Narcan 1 spray intranasally once, may repeat x1, oxycodone 5 mg p.o. q. 4 hours p.r.n. and OxyContin 10 mg p.o. b.i.d. for 2 days. Resume home meds as listed. Stop taking previous aspirin dosage, diclofenac sodium, and ibuprofen. MTDD
== END 2019-12-21 12:58 | disposition home health service (06) ==
LOC: ASU 08:08 → 3E 15:04 → INTOOBSV 15:04